=== PATIENT | male | born 1975 | race Caucasian/White ===

== ENCOUNTER 2021-02-02 13:06 | Emergency (ER) | payer OTHER ==
[~2021-02-02] VITALS: Ht 160 cm; Wt 75.0 kg
[2021-02-02 13:30] VITALS: BP 135/95
--- NOTE | 2021-02-02 14:03 | RAD ---
EXAM: CHEST ONE VIEW. HISTORY: COVID-19, shortness of breath. COMPARISON: None. FINDINGS: A frontal view of the chest is obtained. There are mild interstitial opacities in left base. The inspiration is small. There is no pneumothora x or pleural effusion. The heart is not enlarged. There are chronic left rib fractures. Cholecystecto my clips are noted. IMPRESSION: 1. Mild left basilar infiltrates consistent with atypical pneumonia. Electronically signed by: Loulou Bermudez MD (02/02/2021 2:00 PM) [id number]
[2021-02-02 14:45] LABS: BASO % 1 % (0-3); EOS % 0 % (0-3); HEMATOCRIT 44.9 % (39.0-53.0); HEMOGLOBIN 14.8 g/dL (13.0-17.5); LYMPH # 0.3 x10^3/uL (1.0-4.8); LYMPH % 9 % (24-48); MEAN CORPUSCULAR HEMOGLOBIN 30 pg (25-35); MEAN CORPUSCULAR HGB CONC 33 g/dL (31-37); MEAN CORPUSCULAR VOLUME 90 fL (79-100); MONO # 0.5 x10^3/uL (0.0-1.1); MONO % 15 % (0-9); NEUT # 2.5 x10^3uL (1.8-7.7); NEUT % 75 % (31-73); PLATELET COUNT 112 x10^3/uL (140-400); RED BLOOD COUNT 5.02 x10^6/uL (4.30-5.70); RED CELL DISTRIBUTION WIDTH 15.4 % (11.5-14.5); WHITE BLOOD COUNT 3.3 x10^3/uL (4.0-11.0)
[2021-02-02 15:15] LABS: CALCIUM 9.3 mg/dL (8.5-10.1); CREATININE 1.4 mg/dL (0.7-1.3); GFR 55.1; POTASSIUM 4.2 mmol/L (3.5-5.1)
[2021-02-02 15:21] LABS: ALBUMIN/GLOBULIN RATIO 1.3 (1.0-1.7); TOTAL BILIRUBIN 0.6 mg/dL (0.2-1.0)
--- NOTE | 2021-02-02 15:50 | PHYS DOC ---
Past History Additional Past Medical Histor: kidney and pancreas transplant (ADAL SILVA APRN) Past Surgical History: Cholecystectomy, Other (ADAL SILVA APRN) General Adult EDM: Chief Complaint: COUGH HPI: HPI: Patient is a 45-year-old male being seen in the ER for nausea, body aches, fever, shortness of breath, productive cough. Patient was diagnosed with COVID- 19 yesterday. Patient has history of kidney and pancreas transplant. Patient denies abdominal pain, vomiting, diarrhea, chest pain. Patient's vital signs are stable, he is afebrile. (ADAL SILVA APRN) Review of Systems: Review of Systems: 14 body systems of the review of systems have been reviewed. See HPI for pertinent positive and negative responses, otherwise all other systems are negative, nonpertinent or noncontributory (ADAL SILVA APRN) Current Medications: Current Meds: Current Medications Medications (Trade) Dose Ordered Sig/Sho Start Time Stop Time Status Last Admin Dose Admin Ondansetron HCl (Zofran) 4 mg 1X ONCE 02/02/21 14:00 02/02/21 14:01 DC Sodium Chloride 1,000 ml @ 1,000 mls/hr 1X ONCE 02/02/21 14:00 02/02/21 14:59 DC (ADAL SILVA APRN) Allergies: Allergies: Allergies Coded Allergies Type Severity Reaction Last Updated Verified iron Allergy Unknown 02/02/21 Yes (ADAL SILVA APRN) Physical Exam: PE: Constitutional: Well developed, well nourished, no acute distress, non-toxic appearance. [] HENT: Normocephalic, atraumatic Eyes: PERRL, conjunctiva normal, no discharge. [] Neck: Normal range of motion, no stridor Cardiovascular:Heart rate regular rhythm, no murmur [] Lungs & Thorax: Bilateral breath sounds clear to auscultation [] Abdomen: Bowel sounds normal, soft, no tenderness, no masses, no pulsatile masses. [] Skin: Warm, dry, no erythema, no rash. [] Back: Normal range of motion Extremities: No tenderness, no cyanosis, no clubbing, ROM intact, no edema. [] Neurologic: Alert and oriented X 3, normal motor function, normal sensory function, no focal deficits noted. [] Psychologic: Affect normal, judgement normal, mood normal. [] (ADAL SILVA SITE SAFETY COORDINATOR) Current Patient Data: Labs: Laboratory Tests Test 02/02/21 14:24 White Blood Count 3.3 x10^3/uL (4.0-11.0) L Red Blood Count 5.02 x10^6/uL (4.30-5.70) Hemoglobin 14.8 g/dL (13.0-17.5) Hematocrit 44.9 % (39.0-53.0) Mean Corpuscular Volume 90 fL (79-100) Mean Corpuscular Hemoglobin 30 pg (25-35) Mean Corpuscular Hemoglobin Concent 33 g/dL (31-37) Red Cell Distribution Width 15.4 % (11.5-14.5) H Platelet Count 112 x10^3/uL (140-400) L Neutrophils (%) (Auto) 75 % (31-73) H Lymphocytes (%) (Auto) 9 % (24-48) L Monocytes (%) (Auto) 15 % (0-9) H Eosinophils (%) (Auto) 0 % (0-3) Basophils (%) (Auto) 1 % (0-3) Neutrophils # (Auto) 2.5 x10^3uL (1.8-7.7) Lymphocytes # (Auto) 0.3 x10^3/uL (1.0-4.8) L Monocytes # (Auto) 0.5 x10^3/uL (0.0-1.1) Eosinophils # (Auto) 0.0 x10^3/uL (0.0-0.7) Basophils # (Auto) 0.0 x10^3/uL (0.0-0.2) Platelet Estimate Pending Sodium Level 136 mmol/L (136-145) Potassium Level 4.2 mmol/L (3.5-5.1) Chloride Level 102 mmol/L (98-107) Carbon Dioxide Level 20 mmol/L (21-32) L Anion Gap 14 (6-14) Blood Urea Nitrogen 31 mg/dL (8-26) H Creatinine 1.4 mg/dL (0.7-1.3) H Estimated GFR (Cockcroft-Gault) 55.1 BUN/Creatinine Ratio 22 (6-20) H Glucose Level 103 mg/dL (70-99) H Calcium Level 9.3 mg/dL (8.5-10.1) Total Bilirubin 0.6 mg/dL (0.2-1.0) Aspartate Amino Transferase (AST) 29 U/L (15-37) Alanine Aminotransferase (ALT) 24 U/L (16-63) Alkaline Phosphatase 80 U/L (46-116) Total Protein 7.0 g/dL (6.4-8.2) Albumin 4.0 g/dL (3.4-5.0) Albumin/Globulin Ratio 1.3 (1.0-1.7) Vital Signs: Vital Signs Date Time Temp Pulse Resp B/P (MAP) Pulse Ox O2 Delivery O2 Flow Rate FiO2 02/02/21 13:30 98.4 90 12 135/95 96 Room Air (ADAL SILVA APRN) EKG: EKG: [] (ADAL SILVA APRN) Radiology/Procedures: Radiology/Procedures: PROCEDURE: CHEST AP ONLY EXAM: CHEST ONE VIEW. HISTORY: COVID-19, shortness of breath. COMPARISON: None. FINDINGS: A frontal view of the chest is obtained. There are mild interstitial opacities in left base. The inspiration is small. There is no pneumothorax or pleural effusion. The heart is not enlarged. There are chronic left rib fractures. Cholecystectomy clips are noted. IMPRESSION: 1. Mild left basilar infiltrates consistent with atypical pneumonia. Electronically signed by: Loulou Bermudez MD (02/02/2021 2:00 PM) [id number] DICTATED AND SIGNED BY: AMBERLY BERMUDEZ MD DATE: 02/02/21 1400 CC: PENNY OCASIO MD; ADAL SILVA APRN ~MTH0 0 [] (ADAL SILVA APRN) Heart Score: C/O Chest Pain: No Risk Factors: Risk Factors: DM, Current or recent (<one month) smoker, HTN, HLP, family history of CAD, obesity. Risk Scores: Score 0 - 3: 2.5% MACE over next 6 weeks - Discharge Home Score 4 - 6: 20.3% MACE over next 6 weeks - Admit for Clinical Observation Score 7 - 10: 72.7% MACE over next 6 weeks - Early Invasive Strategies (ADAL SILVA APRN) Course & Med Decision Making: Course & Med Decision Making Pertinent Labs and Imaging studies reviewed. (See chart for details) Patient is a 45-year-old male being seen for multiple complaints such as body aches, fever, shortness of breath, productive cough, nausea. These symptoms are consistent with his COVID-19 infection. Chest x-ray was performed and it showed pneumonia. Patient treated with antibiotic. Patient given a steroid in the ER. Blood work was obtained CBC unremarkable, patient did have elevated BUN and creatinine in the ER. It is likely that this is due to dehydration. Patient reports that he is no longer nauseous and does not require any nausea medication. Patient is a difficult IV stick and is refusing IV fluids. Patient advised to increase his fluids at home. Patient vital signs are stable and he is nonlabored. I discussed with patient all findings and diagnostic testing as well as the need to follow-up with PCP for further evaluation and treatment or return to the ER if any new or worsening symptoms. Strict return precautions were also discussed at length. Patient voiced understanding and agreement with the plan. Patient is hemodynamically stable at the time of disposition. (ADAL SILVA APRN) Dragon Disclaimer: Dragon Disclaimer: This electronic medical record was generated, in whole or in part, using a voice recognition dictation system. (ADAL SILVA APRN) Departure Departure: Impression: Primary Impression: Pneumonia due to COVID-19 virus Disposition: 01 HOME / SELF CARE / HOMELESS Condition: GOOD Referrals: PENNY OCASIO MD (PCP) Patient Instructions: Pneumonia, Adult Additional Instructions: You were seen in the ER today for shortness of breath, productive cough, fever, and body aches. The symptoms are consistent with your COVID-19 viral infection. Chest x-ray was performed and you do have pneumonia. You will be discharged home with an antibiotic. Please start and finish the antibiotic completely. You were given a dose of a steroid in the ER today. You can take Tylenol at home for any fevers or pain. Follow-up with your primary care provider tomorrow regarding your ER visit. If you develop shortness of breath, chest pain, fevers refractory to treatment, uncontrollable nausea or vomiting please return to the ER immediately. EMERGENCY DEPARTMENT GENERAL DISCHARGE INSTRUCTIONS Thank you for coming to [facility] (ED) today and trusting us with you care. We trust that you had a positivie experience in our Emergency Department. If you wish to speak to the department management, you may call the director at . YOUR FOLLOW UP INSTRUCTIONS ARE FOLLOWS: 1. Do you have a private Doctor? If you do not have a private doctor, please ask for a resource list of physicians or clinics that may be able to assist you with follow up care. 2. The Emergency Physician has interpreted your x-rays. The X-Ray specialist will also review them. If there is a change in the findings, you will be notified in 48 hours when at all possible. 3. A lab test or culture has been done, your results will be reviewed and you will be notified if you need a change in treatment. ADDITIONAL INSTRUCTIONS AND INFORMATION: 1. Your care today has been supervised by a physician who is specially trained in emergency care. Many problems require more than one evaluation for a complete diagnosis and treatment. We recommend that you schedule your follow up appointment as recommended to ensure complete treatment of you illness or injury. If you are unable to obtain follow up care and continue to have a problem, or if your condition worsens, we recommend that you return to the ED. 2. We are not able to safely determine your condition over the phone nor are we able to give sound medical advice over the phone. For these safety reasons, if you call for medical advice we will ask you to come to the ED for further evaluation. 3. If you have any questions regarding these discharge instructions please call the ED at [phone]. SAFETY INFORMATION: In the interest of safety, wellness, and injury prevention; we encourage you to wear your sealbelt, if you smoke; quite smoking, and we encourage family to use a protective helmet for bicycling and other sporting events that present an increased risk for head injury. IF YOUR SYMPTOMS WORSEN OR NEW SYMPTOMS DEVELOP, OR YOU HAVE CONCERNS ABOUT YOUR CONDITION; OR IF YOUR CONDITION WORSENS WHILE YOU ARE WAITING FOR YOUR FOLLOW UP APPOINTMENT; EITHER CONTACT YOUR PRIMARY CARE DOCTOR, THE PHYSICIAN WHOSE NAME AND NUMBER YOU WERE GIVEN, OR RETURN TO THE ED IMMEDIATELY. Scripts Doxycycline Hyclate (DOXYCYCLINE HYCLATE) 100 Mg Tablet 1 TAB PO BID for pneumonia for 5 Days, #10 TAB 0 Refills Prov: ADAL SILVA APRN 02/02/21 Attending Signature Attending Signature I have reviewed the PA/SURGICAL FORCEPS FABRICATOR's note and plan of care. I was available for consultation as needed during the patient's visit in the emergency department. I agree with the clinical impression, plan, and disposition. (LEONIDES MATSON DO) ADAL SILVA APRN Feb 02, 2021 15:50 LEONIDES MATSON DO Feb 02, 2021 20:51
[2021-02-02 16:12] LABS: % BANDS 5 % (0-9); % LYMPHS 11 % (24-48); % MONOS 6 % (0-10); % SEGS 78 % (35-66); PLT ESTIMATE DECREASED (ADEQUATE)
[2021-02-02] MEDS ORDERED: AZIT250T6 PO (16:30)
[2021-02-02] MEDS ORDERED: DOXY100T PO (16:39)
[2021-02-02] MEDS: IV NORMAL SALINE 1,000ML 1,000 ML IV ONE (16:46)
[2021-02-02] MEDS: ONDANSETRON PF 4 MG/2 ML VIAL. IVP ONE (16:46)
[2021-02-02] MEDS: DEXAMETHASONE SOD PHOS 10 MG/ML VIAL. PO ONE (16:46)
== END 2021-02-02 17:00 | disposition home or self-care (01) ==
LOC: ER 13:06
DX: U07.1 COVID-19 (principal); J12.82 Pneumonia due to coronavirus disease 2019; Z88.8 Allergy status to other drugs, medicaments and biological substances
CPT/HCPCS: 36415; 71045; 80053; 85007; 85025; 96374; 99284; J1100; J2405; J7030

== ENCOUNTER 2021-02-07 08:44 | Emergency (ER) | payer OTHER ==
[~2021-02-07] VITALS: Ht 160 cm; Wt 74.6 kg
[~2021-02-07 08:44] MED LIST: AZIT250T6 PO; DOXY100T PO
[2021-02-07] MEDS ORDERED: ONDANSETRON PF 4 MG/2 ML VIAL. IVP ONE (09:00)
[2021-02-07] MEDS ORDERED: IV NORMAL SALINE 1,000ML 1,000 ML IV ONE (09:00)
--- NOTE | 2021-02-07 09:44 | PHYS DOC ---
Past History Additional Past Medical Histor: kidney and pancreas transplant Past Surgical History: Cholecystectomy, Other Alcohol Use: None General Adult EDM: Chief Complaint: MULTIPLE COMPLAINTS HPI: HPI: 45-year-old male who is COVID-19 positive presents with vomiting. The patient is a transplant patient and he has been unable to keep down his medications. This makes him very concerned so he came into the emergency room. He did try some home remedies and said his doctor's office suggested but they did not work. Patient is concerned he is also dehydrated. He continues to have a cough but does not have any worsened shortness of breath. He has been Covid positive for about 1 week. He has no other significant complaints at this time. Review of Systems: Review of Systems: Constitutional: Denies fever or chills Eyes: Denies change in visual acuity HENT: Denies nasal congestion or sore throat Respiratory: Cough with shortness of breath Cardiovascular: Denies chest pain or edema GI: Nausea, vomiting. Denies abdominal pain, bloody stools or diarrhea : Denies dysuria Musculoskeletal: Denies back pain or joint pain Integument: Denies rash Neurologic: Denies headache, focal weakness or sensory changes Endocrine: Denies polyuria or polydipsia Lymphatic: Denies swollen glands Psychiatric: Denies depression or anxiety Current Medications: Current Meds: Current Medications Medications (Trade) Dose Ordered Sig/Sho Start Time Stop Time Status Last Admin Dose Admin Ondansetron HCl (Zofran) 4 mg 1X ONCE 02/07/21 09:00 02/07/21 09:01 DC Sodium Chloride 1,000 ml @ 1,000 mls/hr 1X ONCE 02/07/21 09:00 02/07/21 09:59 Allergies: Allergies: Allergies Coded Allergies Type Severity Reaction Last Updated Verified iron Allergy Unknown 02/02/21 Yes Physical Exam: PE: Constitutional: Well developed, well nourished, no acute distress, non-toxic appearance. [] HENT: Normocephalic, atraumatic, bilateral external ears normal, oropharynx moist, no oral exudates, nose normal. [] Eyes: PERRLA, EOMI, conjunctiva normal, no discharge. [] Neck: Normal range of motion, no tenderness, supple, no stridor. [] Cardiovascular: Heart rate regular rhythm, no murmur [] Lungs & Thorax: Bilateral breath sounds clear to auscultation [] Abdomen: Bowel sounds normal, soft, no tenderness, no masses, no pulsatile masses. [] Skin: Warm, dry, no erythema, no rash. [] Back: No tenderness, no CVA tenderness. [] Extremities: No tenderness, no cyanosis, no clubbing, ROM intact, no edema. [] Neurologic: Alert and oriented X 3, normal motor function, normal sensory function, no focal deficits noted. [] Psychologic: Affect normal, judgement normal, mood normal. [] EKG: EKG: [] Radiology/Procedures: Radiology/Procedures: [] Heart Score: C/O Chest Pain: N/A Risk Factors: Risk Factors: DM, Current or recent (<one month) smoker, HTN, HLP, family history of CAD, obesity. Risk Scores: Score 0 - 3: 2.5% MACE over next 6 weeks - Discharge Home Score 4 - 6: 20.3% MACE over next 6 weeks - Admit for Clinical Observation Score 7 - 10: 72.7% MACE over next 6 weeks - Early Invasive Strategies Course & Med Decision Making: Course & Med Decision Making Pertinent Labs and Imaging studies reviewed. (See chart for details) The patient's labs show an elevated creatinine 1.7. His baseline in the chart is about 1.4. This is likely due to his dehydration. Have given him a liter of normal saline. We have also given him Zofran. His oxygen level is 96% on room air. The patient does not need to be admitted. He would prefer to go home. I will discharge him with a prescription for Zofran and Tessalon Perles. He is s table for discharge at this time. [] Dragon Disclaimer: Dragon Disclaimer: This electronic medical record was generated, in whole or in part, using a voice recognition dictation system. Departure Departure: Impression: Primary Impression: Vomiting Qualified Codes: R11.11 - Vomiting without nausea Additional Impression: COVID-19 Disposition: 01 HOME / SELF CARE / HOMELESS Condition: STABLE Referrals: PENNY OCASIO MD (PCP) Patient Instructions: Nausea and Vomiting, [id number] Additional Instructions: You have been tested for or diagnosed with COVID-19. It is an infection caused by a new type of coronavirus. COVID-19 will cause cold-like or mild flu symptoms in most. It can cause more severe symptoms like problems breathing in some. There is no treatment for COVID-19. The body will clear the infection over time. Self-care will help to ease discomfort. Steps to Take: Self-Care Rest as needed. Healthy habits may help you feel better. Steps include: Choose healthy foods including fruits and vegetables. Drink water throughout the day. Get plenty of sleep each night. If you smoke, try to quit. It may ease breathing. Avoid alcohol. Keep Others Healthy The virus can spread to others. Droplets are released every time you sneeze or cough. The droplets can get into the mouth, nose, or eyes of people near you and lead to infection. To lower the chances of spreading COVID-19 to others: Stay at home until your doctor has said it is safe to leave. If you tested positive this will mean staying isolated until both of the following are true: At least 7 days have passed since the start of illness. You are free of fever for at least 72 hours without the use of medicine. During this time: - Avoid public areas, events, or transportation. Do not return to work or school until your doctor has said it is safe to do so. - Call ahead if you need to go to a medical center. Let them know you may have COVID-19. It will help them guide you where to go. They may also ask you to wear a facemask when you come to the office. - If you call for emergency medical services, let them know you may have COVID- 19. While at home: - Try to avoid close contact with others. Stay about 6 feet away. - If possible, spend most of your time in a separate room from others. - Use a face mask if you will be in close contact with others such as sharing a room or vehicle. - Have someone wipe down common surfaces in the home. Use household auditor medical claims every day on areas like doorknobs, counters, or sinks. - Cough or sneeze into a tissue. Throw the tissue away right after use. If a tissue is not available, cough or sneeze into your elbow. - Wash your hands often. Wash them after sneezing or coughing. Use soap and water and wash for at least 20 seconds. Alcohol based hand vat cleaner can be used if soap and water is not available. - Do not prepare food for others. Avoid sharing personal items like forks, s poons, or toothbrushes. - Avoid close contact with pets while you are sick. There is no evidence of the virus passing to pets. This is a safety step until more is known about this virus. Isolation can be frustrating. Social interaction can help. Keep in touch with friends and family through phone and tech options. You can still interact with others in your home, just keep a safe distance of about 6 feet. Follow-up: Your doctors office will check in with you to see if there are any changes in your health. You may be asked to keep track of symptoms to share with them. They will also let you know when you are clear to be in public again. Problems to Look Out For: Contact your doctor if your recovery is not going as you expect. Get emergency care if you have problems such as: - Trouble breathing - Nonstop chest pain or pressure - Changes in awareness, confusion, or problems waking - Lips or face have bluish color - Worsening of symptoms If you think you have an emergency, call for emergency medical services right away. As taken from [facility] Ondansetron (ONDANSETRON ODT) 4 Mg Tab.rapdis 1 TAB PO PRN Q6-8HRS PRN for VOMITING, #16 TAB Prov: CARMEN TAVARES DO 02/07/21 Benzonatate (TESSALON PERLE) 100 Mg Capsule 1 CAP PO TID PRN for COUGH, #30 CAP Prov: CARMEN TAVARES DO 02/07/21 CARMEN TAVARES DO Feb 07, 2021 09:44
[2021-02-07 09:58] LABS: BASO % 0 % (0-3); EOS % 0 % (0-3); HEMATOCRIT 48.4 % (39.0-53.0); HEMOGLOBIN 16.1 g/dL (13.0-17.5); LYMPH # 0.4 x10^3/uL (1.0-4.8); LYMPH % 12 % (24-48); MEAN CORPUSCULAR HEMOGLOBIN 29 pg (25-35); MEAN CORPUSCULAR HGB CONC 33 g/dL (31-37); MEAN CORPUSCULAR VOLUME 87 fL (79-100); MONO # 0.4 x10^3/uL (0.0-1.1); MONO % 12 % (0-9); NEUT # 2.5 x10^3uL (1.8-7.7); NEUT % 76 % (31-73); PLATELET COUNT 110 x10^3/uL (140-400); RED BLOOD COUNT 5.54 x10^6/uL (4.30-5.70); RED CELL DISTRIBUTION WIDTH 14.8 % (11.5-14.5); WHITE BLOOD COUNT 3.3 x10^3/uL (4.0-11.0)
[2021-02-07 10:09] LABS: CALCIUM 9.4 mg/dL (8.5-10.1); CREATININE 1.7 mg/dL (0.7-1.3); POTASSIUM 4.5 mmol/L (3.5-5.1)
[2021-02-07 10:14] LABS: ALBUMIN 3.9 g/dL (3.4-5.0); ALBUMIN/GLOBULIN RATIO 1.2 (1.0-1.7); TOTAL BILIRUBIN 0.8 mg/dL (0.2-1.0); TOTAL PROTEIN 7.2 g/dL (6.4-8.2)
[2021-02-07] MEDS ORDERED: BENZONATATE 100 MG CAPSULE. PO ONE (10:30)
[2021-02-07] MEDS ORDERED: ONDA4TAB12 PO (10:35)
[2021-02-07] MEDS ORDERED: BENZ100C PO (10:35)
[2021-02-07 10:46] VITALS: BP 165/98
== END 2021-02-07 10:46 | disposition home or self-care (01) ==
LOC: ER 08:44
DX: U07.1 COVID-19 (principal); Z90.49 Acquired absence of other specified parts of digestive tract; Z88.8 Allergy status to other drugs, medicaments and biological substances
CPT/HCPCS: 36415; 80053; 85025; 96361; 96374; 99283; J2405; J7030

== ENCOUNTER → 2021-02-09 | Outpatient (CLI) | payer OTHER ==
[~2021-02-09] MED LIST changes: +BENZ100C PO; +CASIRIVIMAB/IMDEVIMAB 600/600mg in IV NS TV=50 ML IV ONE; +ONDA4TAB12 PO
[2021-02-09 14:22] VITALS: BP 136/92
--- NOTE | 2021-02-09 14:23 | NUR ---
NURSING NOTE OUTPT AMBULATED TO ROOM 125 FOR INFUSION. IV PLACED IN LEFT AC. VITALS OBTAINED. PT GIVEN FACT SHEET ABOUT MEDICATION. INFUSION STARTED. TY HANKS.
[2021-02-09 15:06] VITALS: BP 142/91
--- NOTE | 2021-02-09 15:08 | NUR ---
NURSING NOTE INFUSION COMPLETE. PT HERE WAITING FOR 1 HOUR POST INFUSION VITAL SIGNS. TY HANKS.
[2021-02-09 15:43] VITALS: BP 139/94
--- NOTE | 2021-02-09 16:00 | NUR ---
NURSING NOTE PT VITALS OBTAINED 1 HOUR POST INFUSION. VITALS STABLE. PT AMBULATED OFF UNIT. NO COMPLICATIONS. TY HANSK.
== END | disposition home or self-care (01) ==
LOC: OPINF 13:15
PROVIDERS: ATTEND Physician Assistant
DX: U07.1 COVID-19 (principal); J12.82 Pneumonia due to coronavirus disease 2019; R11.2 Nausea with vomiting, unspecified; Z90.49 Acquired absence of other specified parts of digestive tract
CPT/HCPCS: M0243; Q0243